=== PATIENT | male | born 1945 | race Caucasian/White ===

== ENCOUNTER 2017-10-18 04:44 | Outpatient (CLI) | payer MEDICARE, BC ==
[~2017-10-18 04:44] MED LIST: ASPI1CPM6 PO; ATOR20TA66 PO; LOSA100T28 PO; MULT1TAB74 PO; NEBI10TA2 PO; NOVRI SQ; NPH,100V2 SQ; VERA360C2 PO
== END 2017-10-18 23:59 | disposition home or self-care (01) ==
LOC: DIABETIC 04:44
DX: E11.9 Type 2 diabetes mellitus without complications (principal)
CPT/HCPCS: G0108

== ENCOUNTER 2017-12-13 02:37 | Outpatient (CLI) | payer MEDICARE, BC | END 2017-12-13 23:59 | disposition home or self-care (01) | LOC: DIABETIC 02:37 | DX: E11.9 Type 2 diabetes mellitus without complications (principal) | CPT/HCPCS: G0108 ==

== ENCOUNTER 2018-02-08 00:18 | Outpatient (CLI) | payer MEDICARE, BC | END 2018-02-08 23:59 | disposition home or self-care (01) | LOC: DIABETIC 00:18 | DX: E11.9 Type 2 diabetes mellitus without complications (principal); Z79.84 Long term (current) use of oral hypoglycemic drugs; Z79.82 Long term (current) use of aspirin; Z98.52 Vasectomy status | CPT/HCPCS: G0108 ==

== ENCOUNTER 2018-05-16 03:51 | Outpatient (CLI) | payer MEDICARE, BC ==
[~2018-05-16 03:51] MED LIST changes: +LOSA100T15 PO; -LOSA100T28 PO
== END 2018-05-16 23:59 | disposition home or self-care (01) ==
LOC: DIABETIC 03:51
DX: E11.9 Type 2 diabetes mellitus without complications (principal); Z98.890 Other specified postprocedural states; Z86.73 Personal history of transient ischemic attack (TIA), and cerebral infarction without residual deficits
CPT/HCPCS: G0108

== ENCOUNTER 2018-08-15 00:06 | Outpatient (CLI) | payer MEDICARE, BC ==
[~2018-08-15 00:06] MED LIST changes: -LOSA100T15 PO; +LOSA100T57 PO
== END 2018-08-15 23:59 | disposition home or self-care (01) ==
LOC: DIABETIC 00:06
DX: E11.9 Type 2 diabetes mellitus without complications (principal); Z79.84 Long term (current) use of oral hypoglycemic drugs; Z79.4 Long term (current) use of insulin
CPT/HCPCS: G0108

== ENCOUNTER 2018-11-21 02:27 | Outpatient (CLI) | payer MEDICARE, BC | END 2018-11-21 23:59 | disposition home or self-care (01) | LOC: DIABETIC 02:27 | DX: E11.9 Type 2 diabetes mellitus without complications (principal); Z79.84 Long term (current) use of oral hypoglycemic drugs; Z79.4 Long term (current) use of insulin | CPT/HCPCS: G0108 ==

== ENCOUNTER 2019-02-20 00:31 | Outpatient (CLI) | payer MEDICARE, BC | END 2019-02-20 23:59 | disposition home or self-care (01) | LOC: DIABETIC 00:31 | DX: E11.9 Type 2 diabetes mellitus without complications (principal); Z79.4 Long term (current) use of insulin; Z79.84 Long term (current) use of oral hypoglycemic drugs | CPT/HCPCS: G0108 ==

== ENCOUNTER 2019-05-22 04:20 | Outpatient (CLI) | payer MEDICARE, BC | END 2019-05-22 23:59 | disposition home or self-care (01) | LOC: DIABETIC 04:20 | DX: E11.9 Type 2 diabetes mellitus without complications (principal); Z79.84 Long term (current) use of oral hypoglycemic drugs; Z79.82 Long term (current) use of aspirin | CPT/HCPCS: G0108 ==

== ENCOUNTER 2019-09-01 11:13 | Emergency (ER) | payer MEDICARE, BC ==
[~2019-09-01] VITALS: Ht 177.8 cm; Wt 109.1 kg
--- NOTE | 2019-09-01 11:30 | NUR ---
Patient given a turkey sandwich and OJ per Dr Moreau.
--- NOTE | 2019-09-01 12:00 | NUR ---
Pt given a second sandwich per Dr Moreau.
[2019-09-01 12:05] LABS: BASOPHILS % (AUTO) 0.3 % (0-1); EOSINOPHILS # (AUTO) 0.1 X10'3 (0-0.9); EOSINOPHILS % (AUTO) 1.5 % (0-6); HEMATOCRIT 40.4 % (42.0-52.0); HEMOGLOBIN 13.3 g/dl (14.0-17.9); LYMPHOCYTES # (AUTO) 1.3 X10'3 (1.1-4.8); LYMPHOCYTES % (AUTO) 20.2 % (21-51); MEAN CORPUSCULAR HEMOGLOBIN 30.9 PG (27.0-31.0); MEAN CORPUSCULAR HGB CONC 32.9 g/dL (33.0-36.5); MEAN CORPUSCULAR VOLUME 93.9 FL (78-98); MEAN PLATELET VOLUME 9.9 FL (7.4-10.4); MONOCYTES # (AUTO) 0.7 X10'3 (0-0.9); MONOCYTES % (AUTO) 10.9 % (2-12); NEUTROPHILS # (AUTO) 4.2 X10'3 (1.8-7.7); NEUTROPHILS % (AUTO) 67.1 % (42-75); PLATELET COUNT 200 X10'3 (140-440); RED CELL DISTRIBUTION WIDTH 15.3 % (11.5-14.5); WHITE BLOOD COUNT 6.2 X10'3 (4.5-11.0)
[2019-09-01 12:18] LABS: PARTIAL THROMBOPLASTIN TIME 26 SECONDS (22-32)
[2019-09-01 12:20] LABS: ALANINE AMINOTRANSFERASE 21 U/L (12-78); ALBUMIN 3.9 G/DL (3.4-5.0); ALBUMIN/GLOBULIN RATIO 1.1 (1.1-1.5); ALKALINE PHOSPHATASE 45 IU/L (46-116); ANION GAP 5 (8-16); ASPARTATE AMINO TRANSFERASE 18 U/L (10-37); BILIRUBIN,TOTAL 0.5 MG/DL (0.1-1.0); BLOOD UREA NITROGEN 28 MG/DL (7-18); BUN/CREATININE RATIO 25.2 (5.4-32.0); CALCIUM 9.7 MG/DL (8.5-10.1); CHLORIDE 105 MMOL/L (99-107); CREATININE 1.11 MG/DL (0.60-1.10); GLUCOSE 136 MG/DL (70-104); SODIUM 140 MMOL/L (135-145); TOTAL CARBON DIOXIDE 30.5 MMOL/L (24-32); TOTAL PROTEIN 7.3 G/DL (6.4-8.2); eGFR 64 ML/MIN
[2019-09-01 12:23] LABS: TROPONIN I 0.12 NG/ML (0.0-0.05)
[2019-09-01 12:27] LABS: ETHANOL < 0.010 GM/DL (0.0-0.010)
[2019-09-01] MEDS ORDERED: aspirin 325mg tablet PO ONE (12:35)
[2019-09-01 12:41] LABS: CLARITY,URINE CLEAR (Clear); COLOR,URINE STRAW (Yellow); GLUCOSE, URINE 100 mg/dl (Neg); KETONES,URINE NEGATIVE (Neg); LEUKOCYTE ESTERASE ,URINE NEGATIVE (Neg); NITRITES, URINE NEGATIVE (Neg); OCCULT BLOOD,URINE NEGATIVE (Neg); PROTEIN,URINE NEGATIVE (Neg); UROBILINOGEN,URINE 0.2 E.U/dL (0.2-1.0)
[2019-09-01 12:44] LABS: UA COLLECTION TYPE URINAL
--- NOTE | 2019-09-01 12:52 | NUR ---
Dr Moreau at bedside.
[2019-09-01 13:58] VITALS: BP 129/68
== END 2019-09-01 14:22 | disposition home or self-care (01) ==
LOC: ER 11:14
DX: E11.649 Type 2 diabetes mellitus with hypoglycemia without coma (principal); R79.89 Other specified abnormal findings of blood chemistry; I10 Essential (primary) hypertension; Z86.73 Personal history of transient ischemic attack (TIA), and cerebral infarction without residual deficits; Z79.82 Long term (current) use of aspirin; Z79.4 Long term (current) use of insulin; Z79.899 Other long term (current) drug therapy
CPT/HCPCS: 36415; 70450; 71045; 80053; 80320; 81003; 82948; 84145; 84484; 85025; 85610; 85730; 93005; 99285

== ENCOUNTER 2021-10-12 08:44 | Emergency (ER) | payer MEDICARE, BC ==
[~2021-10-12] VITALS: Ht 177.8 cm; Wt 109.1 kg
[~2021-10-12 08:44] MED LIST changes: +MULT-620 PO; -MULT1TAB74 PO
[2021-10-12] MEDS ORDERED: HYDROcodone/acetaminophen 10/325mg tab PO ONE (10:05)
[2021-10-12 11:34] VITALS: BP 142/71
[2021-10-12] MEDS ORDERED: HYDR-3972 PO ×2 (11:35→12:41)
== END 2021-10-12 11:53 | disposition home or self-care (01) ==
LOC: ER 08:44
DX: S32.2XXA Fracture of coccyx, initial encounter for closed fracture (principal); S32.10XA Unspecified fracture of sacrum, initial encounter for closed fracture; E11.9 Type 2 diabetes mellitus without complications; Z86.73 Personal history of transient ischemic attack (TIA), and cerebral infarction without residual deficits; Z79.82 Long term (current) use of aspirin; Z79.4 Long term (current) use of insulin; Z79.899 Other long term (current) drug therapy; X58.XXXA Exposure to other specified factors, initial encounter; Y93.89 Activity, other specified; Y92.89 Other specified places as the place of occurrence of the external cause; Y99.8 Other external cause status
CPT/HCPCS: 72192; 99284

== ENCOUNTER 2022-09-03 05:50 | Emergency (ER) | payer MEDICARE, BC ==
[~2022-09-03] VITALS: Ht 177.8 cm; Wt 100.0 kg
[2022-09-03] MEDS ORDERED: DEXTROSE 10 % AND 0.45 % NACL 1,000 ML IV ONE (05:55)
[2022-09-03 06:29] LABS: BASOPHILS % (AUTO) 0.5 % (0-1); EOSINOPHILS # (AUTO) 0.2 X10'3 (0-0.9); EOSINOPHILS % (AUTO) 1.8 % (0-6); HEMATOCRIT 39.4 % (42.0-52.0); HEMOGLOBIN 13.6 g/dl (14.0-17.9); LYMPHOCYTES # (AUTO) 1.9 X10'3 (1.1-4.8); LYMPHOCYTES % (AUTO) 21.9 % (21-51); MEAN CORPUSCULAR HEMOGLOBIN 31.2 PG (27.0-31.0); MEAN CORPUSCULAR HGB CONC 34.6 g/dL (33.0-36.5); MEAN CORPUSCULAR VOLUME 90.2 FL (78-98); MEAN PLATELET VOLUME 10.3 FL (7.4-10.4); MONOCYTES # (AUTO) 0.8 X10'3 (0-0.9); MONOCYTES % (AUTO) 9.5 % (2-12); NEUTROPHILS # (AUTO) 5.8 X10'3 (1.8-7.7); NEUTROPHILS % (AUTO) 66.3 % (42-75); PLATELET COUNT 217 X10'3 (140-440); RED BLOOD COUNT 4.37 X10'6 (4.70-6.10); RED CELL DISTRIBUTION WIDTH 13.7 % (11.5-14.5); WHITE BLOOD COUNT 8.7 X10'3 (4.5-11.0)
[2022-09-03 06:41] LABS: ALANINE AMINOTRANSFERASE 25 U/L (12-78); ALBUMIN 3.4 G/DL (3.4-5.0); ALBUMIN/GLOBULIN RATIO 1.1 (1.1-1.5); ALKALINE PHOSPHATASE 55 IU/L (46-116); ANION GAP 9 (8-16); ASPARTATE AMINO TRANSFERASE 15 U/L (10-37); BILIRUBIN,TOTAL 0.5 MG/DL (0.1-1.0); BLOOD UREA NITROGEN 30 MG/DL (7-18); BUN/CREATININE RATIO 29.4 (10.0-20.0); CALCIUM 9.2 MG/DL (8.5-10.1); CHLORIDE 105 MMOL/L (99-107); CREATININE 1.02 MG/DL (0.60-1.10); GLUCOSE 128 MG/DL (70-104); POTASSIUM 3.6 MMOL/L (3.5-5.1); SODIUM 141 MMOL/L (135-145); TOTAL CARBON DIOXIDE 27.5 MMOL/L (24-32); TOTAL PROTEIN 6.5 G/DL (6.4-8.2); eGFR 70 ML/MIN
[2022-09-03 07:42] LABS: CLARITY,URINE CLEAR (Clear); COLOR,URINE YELLOW (Yellow); GLUCOSE, URINE NEGATIVE (Neg); KETONES,URINE TRACE mg/dl (Neg); LEUKOCYTE ESTERASE ,URINE NEGATIVE (Neg); NITRITES, URINE NEGATIVE (Neg); OCCULT BLOOD,URINE NEGATIVE (Neg); PH,URINE 5.5 (4.8-8.0); PROTEIN,URINE 30 mg/dl (Neg); UA COLLECTION TYPE URINAL; UROBILINOGEN,URINE 0.2 E.U/dL (0.2-1.0)
[2022-09-03 08:05] LABS: BACTERIA,URINE FEW /HPF (Neg); MUCUS STRANDS MODERATE /LPF (Neg); RBC,URINE NONE SEEN /HPF (0-2); SQUAMOUS EPITHELIAL CELL,UR MODERATE /LPF (FEW); WBC,URINE 0-4 /HPF (0-4)
[2022-09-03 09:22] VITALS: BP 147/62
== END 2022-09-03 17:20 | disposition home or self-care (01) ==
LOC: ER 05:50
DX: E11.649 Type 2 diabetes mellitus with hypoglycemia without coma (principal); I10 Essential (primary) hypertension
CPT/HCPCS: 36415; 80053; 81001; 82948; 85025; 93005; 96365; 96366; 99284; J3490

== ENCOUNTER 2023-10-22 12:43 | Emergency (ER) | payer MEDICARE, BC ==
[~2023-10-22] VITALS: Ht 177.8 cm; Wt 100.0 kg
[~2023-10-22 12:43] MED LIST changes: -LOSA100T57 PO; +LOSA100T58 PO
[2023-10-22 14:02] LABS: BASOPHILS # (AUTO) 0.1 X10'3 (0-0.2); BASOPHILS % (AUTO) 0.4 % (0-1); EOSINOPHILS # (AUTO) 0.2 X10'3 (0-0.9); EOSINOPHILS % (AUTO) 1.1 % (0-6); HEMATOCRIT 42.4 % (42.0-52.0); HEMOGLOBIN 14.4 g/dl (14.0-17.9); LYMPHOCYTES # (AUTO) 1.9 X10'3 (1.1-4.8); LYMPHOCYTES % (AUTO) 13.7 % (21-51); MEAN CORPUSCULAR HEMOGLOBIN 31.3 PG (27.0-31.0); MEAN CORPUSCULAR HGB CONC 33.9 g/dL (33.0-36.5); MEAN CORPUSCULAR VOLUME 92.4 FL (78-98); MEAN PLATELET VOLUME 10.8 FL (7.4-10.4); MONOCYTES # (AUTO) 1.2 X10'3 (0-0.9); MONOCYTES % (AUTO) 8.7 % (2-12); NEUTROPHILS # (AUTO) 10.6 X10'3 (1.8-7.7); NEUTROPHILS % (AUTO) 76.1 % (42-75); PLATELET COUNT 247 X10'3 (140-440); RED BLOOD COUNT 4.58 X10'6 (4.70-6.10); RED CELL DISTRIBUTION WIDTH 14.1 % (11.5-14.5)
[2023-10-22 14:04] LABS: BILIRUBIN,URINE NEGATIVE (Neg); CLARITY,URINE CLEAR (Clear); COLOR,URINE YELLOW (Yellow); GLUCOSE, URINE 250 mg/dl (Neg); KETONES,URINE NEGATIVE (Neg); LEUKOCYTE ESTERASE ,URINE NEGATIVE (Neg); NITRITES, URINE NEGATIVE (Neg); OCCULT BLOOD,URINE NEGATIVE (Neg); PH,URINE 5.5 (4.8-8.0); PROTEIN,URINE TRACE mg/dl (Neg); UROBILINOGEN,URINE 0.2 E.U/dL (0.2-1.0)
[2023-10-22 14:05] LABS: UA COLLECTION TYPE NON-SPECIFIED
[2023-10-22] MEDS ORDERED: LOSA1TAB41 PO (14:08)
[2023-10-22] MEDS ORDERED: AMLO5TAB16 PO (14:08)
[2023-10-22] MEDS ORDERED: INSU200I4 SQ (14:08)
[2023-10-22] MEDS ORDERED: CARV-50 PO (14:08)
[2023-10-22] MEDS ORDERED: ASPI81TA52 PO (14:08)
[2023-10-22] MEDS ORDERED: ATOR-2 PO (14:08)
[2023-10-22] MEDS ORDERED: METF-900 PO (14:08)
[2023-10-22] MEDS ORDERED: INSU100V13 SQ ×3 (14:08)
[2023-10-22 14:11] LABS: BACTERIA,URINE RARE /HPF (Neg); RBC,URINE 0-2 /HPF (0-2); SQUAMOUS EPITHELIAL CELL,UR FEW /LPF (FEW); WBC,URINE 0-4 /HPF (0-4)
[2023-10-22 14:12] LABS: MUCUS STRANDS NONE SEEN /LPF (Neg)
[2023-10-22 14:23] LABS: ALBUMIN 3.7 G/DL (3.4-5.0); ANION GAP 9 (8-16); BLOOD UREA NITROGEN 24 MG/DL (7-18); BUN/CREATININE RATIO 24.7 (10.0-20.0); CALCIUM 9.5 MG/DL (8.5-10.1); CHLORIDE 102 MMOL/L (99-107); CREATININE 0.97 MG/DL (0.60-1.10); GLUCOSE 63 MG/DL (70-104); SODIUM 136 MMOL/L (135-145); TOTAL CARBON DIOXIDE 24.7 MMOL/L (24-32); eCRCL 63 ML/MIN; eGFR 74 ML/MIN
[2023-10-22 14:25] LABS: POTASSIUM 3.5 MMOL/L (3.5-5.1)
[2023-10-22 16:30] VITALS: BP 122/80; PULSE 76; RESP 18; TEMP 98; O2SAT 98
== END 2023-10-22 16:36 | disposition home or self-care (01) ==
LOC: ER 12:43
DX: E11.649 Type 2 diabetes mellitus with hypoglycemia without coma (principal); E78.00 Pure hypercholesterolemia, unspecified; I10 Essential (primary) hypertension; Z79.899 Other long term (current) drug therapy; Z79.82 Long term (current) use of aspirin; Z79.84 Long term (current) use of oral hypoglycemic drugs
CPT/HCPCS: 36415; 80048; 81001; 82948; 85025; 99284